=== PATIENT | female | born 1975 | race Two or more races ===

== ENCOUNTER 2023-05-04 20:58 | Emergency (ER) | payer SELFPAY ==
[~2023-05-04] VITALS: Ht 152.4 cm; Wt 50.8 kg
[2023-05-04 23:11] VITALS: TEMP 98
[2023-05-04] MEDS ORDERED: KETOROLAC TROMETHAMINE INJ 60 MG/2 ML VIAL IM ONE ×2 (23:17→23:30)
[2023-05-05] MEDS ORDERED: KETO10TA2 PO (00:48)
[2023-05-05 02:43] VITALS: BP 146/91; O2SAT 98
== END 2023-05-05 02:44 | disposition home or self-care (01) ==
LOC: ER 21:04
DX: S66.811A Strain of other specified muscles, fascia and tendons at wrist and hand level, right hand, initial encounter (principal); W01.0XXA Fall on same level from slipping, tripping and stumbling without subsequent striking against object, initial encounter; Y93.89 Activity, other specified; Y92.89 Other specified places as the place of occurrence of the external cause; Y99.8 Other external cause status; R51.9 Headache, unspecified
CPT/HCPCS: 99285; 72125; 96372; 73610; 73080; 73630; 73130; 70450; 73110; J1885